=== PATIENT | female | born 1985 | race Caucasian/White ===

== ENCOUNTER 2019-04-03 08:22 | Emergency (ER) | payer BC, MEDICAID ==
[2019-04-03] MEDS ORDERED: Sodium Chloride 0.9% 1,000 ML IV ONE (08:33)
[2019-04-03] MEDS ORDERED: Sodium Chloride 0.9% 10 ML Syringe FLUSH PRN (08:33)
[2019-04-03] MEDS ORDERED: Ketorolac 30 MG/ML SDV IVPUSH ONE (08:33)
[2019-04-03] MEDS ORDERED: Ondansetron 4 MG/2 ML SDV IVPUSH ONE (08:51)
[2019-04-03 09:04] VITALS: BP 117/58; PULSE 71
[2019-04-03] MEDS ORDERED: HYDROmorphone 1 MG/ML Syringe IVPUSH ONE ×2 (09:12→10:02)
--- NOTE | 2019-04-03 09:12 | EDM.PDOC ---
ED HPI GENERAL MEDICAL PROBLEM - General Chief Complaint: General Stated Complaint: OVARY CYST PX Time Seen by Provider: 04/03/19 08:45 Source of Information: Reports: Patient History Limitations: Reports: No Limitations - History of Present Illness INITIAL COMMENTS - FREE TEXT/NARRATIVE: 33 YO WF presents to ER with pain to LLQ of abdomen/pelvis which began suddenly this am around 6:30. Pt with PMH of ovarian cysts requiring drainage and endometriosis. Pt s/p partial hysterectomy 5 years ago and L ovarian cyst drainage within the last 2 years. Pt reports she had a pelvic ultrasound 10 days ago with revealed multiple ovarian cysts on the left and was scheduled for surgical drainage 04/05/2019. Pt states she woke this am with severe LLQ pain radiating to her back. Pt reports pain is similar to previous ruptured cysts. Pt denies vaginal bleeding or discharge. Pt denies fever/chills or recent illness. Pt with nausea without vomiting. Onset: Today Quality: Reports: Stabbing Severity: Moderate Improves with: Reports: None Worsens with: Reports: Movement Associated Symptoms: Reports: No Other Symptoms, Nausea/Vomiting Left Lower Abdomen Pain Score (Numeric/FACES): 10 - Related Data Allergies Allergy/AdvReac Type Severity Reaction Status Date / Time No Known Drug Intolerances Allergy Cannot Verified 04/03/19 09:04 Remember Home Meds: Home Meds Ibuprofen [Motrin] 800 mg PO QID PRN 07/30/13 [History] Hydrocodone/Acetaminophen [Hydrocodon-Acetaminophen 5-325] 1 each PO Q6H PRN [History] Hydrocodone/Acetaminophen [Hydrocodon-Acetaminophn 10-325] 1 each PO Q6HR PRN # 10 tablet 04/03/19 [Rx] Ibuprofen [Motrin] 800 mg PO Q8HR #15 tablet 04/03/19 [Rx] Norethindrone AC-Eth Estradiol [Norethind-Eth Estrad 1-0.02 mg] 1 tab PO DAILY 04/03/19 [History] Norethindrone [Dejah] 0.35 mg PO DAILY 04/03/19 [History] busPIRone HCl [Buspirone HCl] 5 mg PO DAILY 04/03/19 [History] Past Medical History Other Gastrointestinal History: pain - Past Surgical History Other HEENT Surgeries/Procedures: nose surgery ED ROS GENERAL - Review of Systems Review Of Systems: See Below Constitutional: Reports: No Symptoms HEENT: Reports: No Symptoms Respiratory: Reports: No Symptoms Cardiovascular: Reports: No Symptoms Endocrine: Reports: No Symptoms GI/Abdominal: Reports: Abdominal Pain, Nausea : Reports: No Symptoms Musculoskeletal: Reports: No Symptoms Skin: Reports: No Symptoms Neurological: Reports: No Symptoms Psychiatric: Reports: No Symptoms Hematologic/Lymphatic: Reports: No Symptoms Immunologic: Reports: No Symptoms ED EXAM, GENERAL - Physical Exam Exam: See Below Exam Limited By: No Limitations General Appearance: Alert, WD/WN, Mild Distress Head: Atraumatic, Normocephalic Neck: Normal Inspection, Supple, Non-Tender, Full Range of Motion Respiratory/Chest: No Respiratory Distress, Lungs Clear, Normal Breath Sounds, No Accessory Muscle Use, Chest Non-Tender Cardiovascular: Normal Peripheral Pulses, Regular Rate, Rhythm, No Edema, No Gallop, No JVD, No Murmur, No Rub GI/Abdominal: Normal Bowel Sounds, Soft, No Organomegaly, No Distention, No Mass , Guarding, Tender (LLQ). No: Distended, Rigid, Rebound Back Exam: CVA Tenderness (L) Extremities: Normal Inspection, Normal Range of Motion, Non-Tender, Normal Capillary Refill, No Pedal Edema Neurological: Alert, Oriented, CN II-XII Intact, Normal Cognition, Normal Gait, Normal Reflexes, No Motor/Sensory Deficits Psychiatric: Normal Affect, Normal Mood Skin Exam: Warm, Dry, Intact, Normal Color, No Rash Lymphatic: No Adenopathy Course - Vital Signs Last Recorded V/S: Last Vital Signs Temp 36.0 C 04/03/19 08:30 Pulse 71 04/03/19 08:30 Resp 20 04/03/19 08:30 BP 117/58 L 04/03/19 08:30 Pulse Ox 99 04/03/19 08:30 Orthostatic Blood Pressure [ 124/77 Standing] Orthostatic Blood Pressure [ 112/72 Sitting] Orthostatic Blood Pressure [ 109/72 Supine] - Orders/Labs/Meds Orders: Active Orders 24 hr Category Date Time Status Orthostatic Vital Signs [RC] ASDIRECTED Care 04/03/19 09:12 Active Peripheral IV Care [RC] . DIRECTED Care 04/03/19 08:34 Active Sodium Chloride 0.9% [Saline Flush] Med 04/03/19 08:33 Active 10 ml FLUSH Q8HR PRN Peripheral IV Insertion Adult [OM.PC] Routine Oth 04/03/19 08:33 Ordered Medication Orders Sodium Chloride (Saline Flush) 10 ml FLUSH Q8HR PRN PRN Reason: keep vein open Last Admin: 04/03/19 08:35 Dose: 10 ml Labs: Laboratory Tests 04/03/19 04/03/19 04/03/19 Range/Units 08:50 08:50 08:50 WBC 8.41 (5.00-10.00) 10^3/uL RBC 4.08 (3.80-5.50) 10^6/uL Hgb 12.9 (12.0-16.0) g/dL Hct 37.8 (37.0-47.0) % MCV 92.6 H D (82.0-92.0) fL MCH 31.6 H (27.0-31.0) pg MCHC 34.1 (32.0-36.0) g/dL RDW 12.8 (11.5-14.5) % Plt Count 258 (150-400) 10^3/uL MPV 10.4 (7.4-10.4) fL Immature Gran % (Auto) 0.1 (0.0-5.0) % Neut % (Auto) 59.8 (50.0-70.0) % Lymph % (Auto) 27.2 (20.0-40.0) % [place] % (Auto) 8.6 H (2.0-8.0) % Eos % (Auto) 3.7 H (1.0-3.0) % Baso % (Auto) 0.6 (0.0-1.0) % Immature Gran # (Auto) 0.01 (0.00-0.50) 10^3/uL Neut # (Auto) 5.03 (2.50-7.00) 10^3/uL Lymph # (Auto) 2.29 (1.00-4.00) 10^3/uL [place] # (Auto) 0.72 (0.10-0.80) 10^3/uL Eos # (Auto) 0.31 H (0.10-0.30) 10^3/uL Baso # (Auto) 0.05 (0.00-0.10) 10^3/uL Sodium 141 (136-145) mmol/L Potassium 3.7 (3.3-5.3) mmol/L Chloride 104 (98-115) mmol/L Carbon Dioxide 24.6 (21.0-32.0) mmol/L Anion Gap 16.1 H (5-15) mmol/L BUN 11 (6-25) mg/dL Creatinine 0.65 (0.51-1.17) mg/dL Est Cr Clr Drug Dosing 112.84 mL/min Estimated GFR (MDRD) > 60 mL/min Glucose 98 (75 - 99) mg/dL Calcium 8.8 (8.7-10.3) mg/dL HCG, Qual Negative (NEGATIVE) Specimen Type Urine Color (YELLOW) Urine Appearance (CLEAR) Urine pH (5.0-9.0) Ur Specific [place] (1.005-1.030) Urine Protein (NEGATIVE) mg/dL Urine Glucose (UA) (NEGATIVE) mg/dL Urine Ketones (NEGATIVE) mg/dL Urine Occult Blood (NEGATIVE) Urine Nitrite (NEGATIVE) Urine Bilirubin (NEGATIVE) Urine Urobilinogen (0.2-1.0) E.U./dL Ur Leukocyte Esterase (NEGATIVE) Urine RBC (0-5) /HPF Urine WBC (0-5) /HPF Ur Epithelial Cells /LPF Urine Bacteria (NONE TO FEW) /HPF 04/03/19 Range/Units 10:25 WBC (5.00-10.00) 10^3/uL RBC (3.80-5.50) 10^6/uL Hgb (12.0-16.0) g/dL Hct (37.0-47.0) % MCV (82.0-92.0) fL MCH (27.0-31.0) pg MCHC (32.0-36.0) g/dL RDW (11.5-14.5) % Plt Count (150-400) 10^3/uL MPV (7.4-10.4) fL Immature Gran % (Auto) (0.0-5.0) % Neut % (Auto) (50.0-70.0) % Lymph % (Auto) (20.0-40.0) % [place] % (Auto) (2.0-8.0) % Eos % (Auto) (1.0-3.0) % Baso % (Auto) (0.0-1.0) % Immature Gran # (Auto) (0.00-0.50) 10^3/uL Neut # (Auto) (2.50-7.00) 10^3/uL Lymph # (Auto) (1.00-4.00) 10^3/uL [place] # (Auto) (0.10-0.80) 10^3/uL Eos # (Auto) (0.10-0.30) 10^3/uL Baso # (Auto) (0.00-0.10) 10^3/uL Sodium (136-145) mmol/L Potassium (3.3-5.3) mmol/L Chloride (98-115) mmol/L Carbon Dioxide (21.0-32.0) mmol/L Anion Gap (5-15) mmol/L BUN (6-25) mg/dL Creatinine (0.51-1.17) mg/dL Est Cr Clr Drug Dosing mL/min Estimated GFR (MDRD) mL/min Glucose (75 - 99) mg/dL Calcium (8.7-10.3) mg/dL HCG, Qual (NEGATIVE) Specimen Type Urincc Urine Color Yellow (YELLOW) Urine Appearance Slightly cloudy H (CLEAR) Urine pH 6.5 (5.0-9.0) Ur Specific [place] 1.025 (1.005-1.030) Urine Protein Negative (NEGATIVE) mg/dL Urine Glucose (UA) Negative (NEGATIVE) mg/dL Urine Ketones Negative (NEGATIVE) mg/dL Urine Occult Blood Negative (NEGATIVE) Urine Nitrite Negative (NEGATIVE) Urine Bilirubin Negative (NEGATIVE) Urine Urobilinogen 0.2 (0.2-1.0) E.U./dL Ur Leukocyte Esterase Negative (NEGATIVE) Urine RBC 0-5 (0-5) /HPF Urine WBC 0-5 (0-5) /HPF Ur Epithelial Cells Few /LPF Urine Bacteria Few (NONE TO FEW) /HPF Meds: Medications Generic Name Dose Route Start Last Admin Trade Name Freq PRN Reason Stop Dose Admin Sodium Chloride 10 ml 04/03/19 08:33 04/03/19 08:35 Saline Flush FLUSH 10 ml Q8HR PRN Administration keep vein open Discontinued Medications Generic Name Dose Route Start Last Admin Trade Name Freq PRN Reason Stop Dose Admin Hydromorphone HCl 1 mg 04/03/19 09:12 04/03/19 09:34 Dilaudid IVPUSH 04/03/19 09:13 1 mg ONETIME ONE Administration Hydromorphone HCl 1 mg 04/03/19 10:02 Dilaudid IVPUSH 04/03/19 10:03 ONETIME ONE Sodium Chloride 1,000 mls @ 999 mls/hr 04/03/19 08:33 04/03/19 08:45 Normal Saline IV 04/03/19 09:33 999 mls/hr .BOLUS ONE Administration Ketorolac Tromethamine 30 mg 04/03/19 08:33 04/03/19 08:50 Toradol IVPUSH 04/03/19 08:34 30 mg ONETIME ONE Administration Ondansetron HCl 4 mg 04/03/19 08:51 04/03/19 08:55 Zofran IVPUSH 04/03/19 08:52 4 mg ONETIME ONE Administration - Re-Assessments/Exams Free Text/Narrative Re-Assessment/Exam: 04/03/19 10:14 pt pain improved after Dilaudid. Pt's orthostatic vitals were within normal limits. Pt has pre-op appointment with [facility] in am. Pt instructed to follow up with [facility] for further evaluation and treatment. Departure - Departure Time of Disposition: 10:17 Disposition: Home, Self-Care 01 Condition: Fair Clinical Impression: Pelvic pain Ovarian cyst Qualifiers: Laterality: left Qualified Code(s): N83.202 - Unspecified ovarian cyst, left side - Discharge Information Prescriptions: Hydrocodone/Acetaminophen [Hydrocodon-Acetaminophn 10-325] 1 each PO Q6HR PRN # 10 tablet PRN Reason: Pain Ibuprofen [Motrin] 800 mg PO Q8HR #15 tablet Instructions: Pelvic Pain, Female, [id number], Ovarian Cyst, [id number] Referrals: Emily Leblanc PA-C [Primary Care Provider] - Forms: ED Department Discharge Additional Instructions: 1. discharge home 2. hydrocodone 10/325 #10 Q6 PRN pain 3. motrin 800mg #15 Q8 hours pain 4. follow up with [facility] as scheduled in am 5. return to ER for worsening symptoms - My Orders Last 24 Hours: My Active Orders 04/03/19 08:33 Sodium Chloride 0.9% [Saline Flush] 10 ml FLUSH Q8HR PRN Peripheral IV Insertion Adult [OM.PC] Routine 04/03/19 08:34 Peripheral IV Care [RC] . DIRECTED 04/03/19 09:12 Orthostatic Vital Signs [RC] ASDIRECTED - Assessment/Plan Last 24 Hours: My Active Orders 04/03/19 08:33 Sodium Chloride 0.9% [Saline Flush] 10 ml FLUSH Q8HR PRN Peripheral IV Insertion Adult [OM.PC] Routine 04/03/19 08:34 Peripheral IV Care [RC] . DIRECTED 04/03/19 09:12 Orthostatic Vital Signs [RC] ASDIRECTED Assessment:: 1. probably ruptured ovarian cyst 2. pelvic pain Plan: 1. discharge home 2. hydrocodone 10/325 #10 Q6 PRN pain 3. motrin 800mg #15 Q8 hours pain 4. follow up with [facility] as scheduled in am 5. return to ER for worsening symptoms
[2019-04-03 09:14] LABS: ANION GAP 16.1 mmol/L (5-15); CHLORIDE,CL 104 mmol/L (98-115); SODIUM,NA 141 mmol/L (136-145)
== END 2019-04-03 11:05 | disposition home or self-care (01) ==
LOC: KA.ED 08:22
DX: N83.202 Unspecified ovarian cyst, left side (principal)
CPT/HCPCS: 36415; 80048; 81001; 84703; 85025; 96361; 96374; 96375; 96376; 99284; J1170; J1885; J2405; J7030